=== PATIENT | male | born 1960 | race Caucasian/White ===

== ENCOUNTER 2017-11-29 17:09 | Inpatient (IN) ==
[2017-11-29] MEDS ORDERED: SALINE FLUSH 10ml SYRINGE IVF PRN (17:16)
--- NOTE | 2017-11-29 17:19 | Emergency Department Report ---
General Adult HPI - General Chief complaint: Chest Pain <ReynoldAndrew Daigle 11/29/17 17:19> Stated complaint: chest pain <FlahertyAndrew 11/29/17 17:19> Time Seen by Provider: 11/29/17 17:15 <FlahertyAndrew 11/29/17 17:19> Source: patient, EMS <Bryson Flahertyrachael Valverde Oxana 11/29/17 17:44> Mode of arrival: EMS <ReynoldAndrew Daigle 11/29/17 17:44> Limitations: no limitations <ReynoldAndrew Daigle 11/29/17 17:44> - History of Present Illness HPI narrative: 57-year-old male presents to the emergency department with the chief complaint of chest discomfort radiating into his left arm. He was at home working on his son's car immediately prior to arrival to the emergency department when his symptoms began. Patient did note improvement of symptoms with 2 sublingual nitroglycerin and intravenous fentanyl. Pain was moderate when originally present. Pain was sharp. Pain radiated to the left arm from the left chest. He denies any shortness of breath. No other complaints or associated symptoms. He was at home when his symptoms began. Symptoms have improved in nature since onset. No other complaints or associated symptoms at this time. <FlahertyAndrew Daigle 11/29/17 17:44> - Related Data Home Medications Medication Instructions Recorded Confirmed Lisinopril [Prinivil] 10 mg PO DAILY 11/29/17 11/29/17 Metformin HCl [Glucophage] 500 mg PO BID 11/29/17 11/29/17 Previous Rx's Medication Instructions Recorded Nitroglycerin [Nitrostat] 0.4 mg SL Q5M PRN #25 tab 11/30/17 <Andrew Flaherty 11/29/17 17:19> Allergies Allergy/AdvReac Type Severity Reaction Status Date / Time No Known Allergies AdvReac Unknown Verified 11/29/17 17:27 <Andrew Flaherty 11/29/17 17:19> Review of Systems Constitutional: Denies: fever, chills <Andrew Flaherty 11/29/17 17:44> Eyes: Denies: eye pain, vision change <Andrew Flaherty 11/29/17 17:44> ENT: Denies: ear pain, throat pain <Andrew Flaherty 11/29/17 17:44> Cardiovascular: Reports: chest pain. Denies: palpitations <Andrew Flaherty 17:44> Respiratory: Denies: cough, dyspnea <Andrew Flaherty 11/29/17 17:44> Gastrointestinal: Denies: abdominal pain, nausea, vomiting, diarrhea <Andrew Flaherty 11/29/17 17:44> Genitourinary: Denies: urgency, dysuria <Andrew Flaherty 11/29/17 17:44> Musculoskeletal: Denies: back pain, arthralgia <Andrew Flaherty 11/29/17 17:44 > Integumentary: Denies: erythema, rash <Andrew Flaherty 11/29/17 17:44> Neurological: Denies: headache, numbness, paresthesias <Andrew Flaherty 17:44> Psychiatric: Denies: anxiety, depression <Andrew Flaherty 11/29/17 17:44> Endocrine: Denies: polydipsia, polyuria <Andrew Flaherty 11/29/17 17:44> Hematological/Lymphatic: Denies: easy bruising, lymphadenopathy <Andrew Flaherty 11/29/17 17:44> Allergic/Immunologic: Denies: facial swelling, urticaria <Andrew Flaherty 17:44> PFSH Pre-diabetic <Andrew Flaherty 11/29/17 17:44> Surgical History: Denied by patient. <Andrew Flaherty 11/30/17 19:15> Family History: Reviewed and Noncontributory. <Andrew Flaherty 11/29/17 17:44> - Social History Smoking status: Current every day smoker <Andrew Flaherty 11/29/17 17:44> Substance use type: does not use <Andrew Flaherty 11/29/17 17:44> Alcohol intake frequency: holidays/special occasions only <Andrew Flaherty 17:44> Physical Exam - Limitations Limitations: no limitations <Andrew Flaherty 11/29/17 17:44> - General General appearance: alert, in no apparent distress <Andrew Flaherty 05/28/18 17:44> - Normal Exams: Head:: Normocephalic without trauma <FlahertyAndrew 11/29/17 17:44> Eyes:: Pupils are PERRLA w/ EOMI, No scleral icterus, irritation, or foreign bodies noted <FlahertyAndrew 11/29/17 17:44> ENMT:: No facial trauma, nasal exudates, pharyngeal erythema, or exudates are noted <Andrew Flaherty 11/29/17 17:44> Dental: No fractured, loose, or missing teeth noted <FlahertyAndrew 11/29/17 17:44> Neck:: Full range of motion, without adenopathy, JVD, bruits or thyromegaly < Andrew Flaherty 11/29/17 17:44> Chest/Respirations:: Clear all stoddard, with good airflow, and symmetry bilaterally <FlahertyAndrew 11/29/17 17:44> Cardiovascular:: Regular rate and rhythm, without murmur or gallop, Pulses 2+ all extremities, capillary refill, <2 seconds all extremities <FlahertyAndrew 11/29/17 17:44> Abdomen:: Bowel sounds positive, soft, non-tender, non-distended, no hepatosplenomegaly, masses or bruits noted <Andrew Flaherty 11/29/17 17:44> Lymphatic:: No lymphadenopathy, or lymphedema noted <Andrew Flaherty 11/29/17 17:44> Musculoskeletal:: No tenderness, or deformity noted, good range of motion, all extremities <Andrew Flaherty 11/29/17 17:44> Integumentary:: No rashes, hives, or bruising noted, hair and nails, without abnormality <Andrew Flaherty 11/29/17 17:44> Neurological:: Patient is alert, and oriented, cranial nerves, motor/sensory/ cerebellar, exams w/o gross deficits, to observation <Andrew Flaherty 17:44> Psychiatric:: Patient exhibits, appropriate attention, emotion and affect < Andrew Flaherty 11/29/17 17:44> Course - Consultations Consultation #1: Dr. Fenton: Recommends admission overnight; if he has ongoing pain, can put him on a lovenox drip. Else can give low dose lovenox (30mg bid or 40mg daily). Serial troponins overnight and echo in the AM. <eb 11/29/17 19:44> Time: 19:34 <eb 11/29/17 19:34> Consultation #2: [facility] Tele[facility]: Will admit for trop trending and overnight mgmt. <11/29/17 19:49> Time: 19:44 <eb 11/29/17 19:44> Vital Signs Temperature 98.7 F 11/29/17 17:05 Pulse Rate 88 11/29/17 17:05 Respiratory Rate 24 11/29/17 17:05 Blood Pressure 138/77 11/29/17 17:05 Pulse Oximetry 95 11/29/17 17:05 Temperature 98.7 F 11/29/17 17:18 Pulse Rate 81 11/29/17 17:45 Respiratory Rate 17 11/29/17 17:45 Blood Pressure 151/65 H 11/29/17 17:45 Pulse Oximetry 93 11/29/17 17:45 <11/29/17 19:34> Medical Decision Making - [facility] Narrative Medical decision making narrative: Patient care was turned over to Dr. Quentin Silva at 1800. Patient was given 324 mg of ASA po by EMS prior to arrival to the ED. He was also given sublingual nitroglycerin and fentanyl which took his pain away. He remained asymptomatic for his ED course. <Andrew Flaherty 11/29/17 18:16> - Differential Diagnosis ACS, chest wall pain, pneumothorax, metabolic disorder <Andrew Flaherty 18:16> - Medical Records Medical records reviewed: Yes: I reviewed the patient's medical records. <November, Quentin 11/29/17 19:49> - Lab Data Lab results reviewed: Yes: I reviewed the patient's lab results. <November,Quentin 11/29/17 19:49> Result diagrams: 11/30/17 04:00 11/30/17 04:00 <Andrew Flaherty 11/29/17 17:19> Lab Results 0511/29/17 11/29/17 Range/Units 17:27 17:27 18:56 WBC 10.8 (4.5-11.0) T/MM3 RBC 5.24 (4.50-5.90) M/MM3 Hgb 15.7 (13.5-17.5) GM/DL Hct 47.6 (41-53) % MCV 90.8 (80-100) UM3 MCH 30.0 (26-34) UUG MCHC 33.0 (31-37) GM/DL RDW Std Deviation 49.8 (36.9-50.2) FL Plt Count 258 (130-400) T/MM3 MPV 10.5 (9.4-12.4) UM3 Immature Gran % (Auto) 0.3 (0.0-0.5) % Neut % (Auto) 65.4 (33-66) % Lymph % (Auto) 23.1 (23-45) % Smyth % (Auto) 7.0 (0-9.0) % Eos % (Auto) 3.9 (0-4) % Baso % (Auto) 0.3 (0-2) % Neut # (Auto) 7.0 (1.8-7.7) T/MM3 Lymph # (Auto) 2.5 (1-4.8) T/MM3 Smyth # (Auto) 0.8 (0-0.8) T/MM3 Eos # (Auto) 0.4 (0-0.5) T/MM3 Baso # (Auto) 0.0 (0-0.2) T/MM3 Abs Immat Gran (auto) 0.03 (0.00-0.03) T/MM3 Turbidity < 20 (0-20) Sodium 147 H (134-144) MEQ/L Potassium 4.2 (3.6-5) MEQ/L Chloride 105 (98-107) MEQ/L Carbon Dioxide 27 (22-30) MEQ/L Anion Gap 15 (5-15) meq/L BUN 21.0 H (9-20) MG/DL Creatinine 0.9 (0.8-1.5) mg/dL GFR Calculation 88 BUN/Creatinine Ratio 23 (6-26) RATIO Glucose 113 H (75-110) MG/DL Calculated Osmolality 286 H (261-280) MOSM/KG Calcium 9.9 (8.4-10.2) MG/DL Total Bilirubin 0.50 (0.20-1.30) MG/DL Icterus Index < 2 (0-7) AST 23 (17-59) U/L ALT 28 (1-50) U/L Alkaline Phosphatase 66 (38-126) U/L Troponin I < 0.012 0.040 D (0-0.12) ng/ml Total Protein 7.7 (6.3-8.2) g/dL Albumin 4.3 (3.5-5.0) g/dL Globulin 3.4 (2.4-3.6) G/DL Albumin/Globulin Ratio 1.3 (1.1-2.2) RATIO Specimen Hemolysis < 15 < 15 (0-25) <11/29/17 19:34> - Radiology Data Radiology results reviewed: Yes: I reviewed the patient's radiology results. < 11/29/17 19:49> Chest x-ray: No acute processes. <Andrew Flaherty 11/29/17 18:16> - EKG Data EKG #1 EKG results narrative: Sinus rhythm. 93 bpm. No STEMI. Normal EKG. <Andrew Flaherty 11/29/17 18:16> Disposition Clinical Impression: Elevated troponin, Morbid obesity with BMI of 50.0-59.9, adult, Tobacco dependence, Non-insulin treated type 2 diabetes mellitus <Andrew Flaherty 11/30/17 19:15> Disposition: 02 To [facility] <Andrew Flaherty 11/30/17 19:15> Print Language: Faroese <Andrew Flaherty 11/30/17 19:15> Condition: Stable <Andrew Flaherty 11/30/17 19:15> Prescriptions: New Nitroglycerin [Nitrostat] 0.4 mg SL Q5M PRN #25 tab PRN Reason: Angina Discontinued Naproxen [Aleve (Naproxen) 220 mg] 220 mg PO Q6H PRN PRN Reason: Pain Ibuprofen 400 mg PO O No Action Lisinopril [Prinivil] 10 mg PO DAILY Metformin HCl [Glucophage] 500 mg PO BID <Andrew Flaherty 11/29/17 17:19> Referrals: Tauiliili,Alessia J, [facility] [Primary Care Provider] - <Andrew Flaherty - 11/29/17 17:19> Time of Disposition: 19:49 <NovemberQuentin - 11/29/17 19:49> - Seen By: physician <NovemberQuentin - 11/29/17 19:49>
--- OUTSIDE RECORDS SUMMARY | 2017-11-29 18:18 | External Medical Summary ---
:1960 Author Organization [employer] Care Team Providers Name Role Phone Cass Conde Provider Role Unavailable Allergies, Adverse Reactions, Alerts Substance Reaction Event Type N.K.D.A. Info Not Available Non Drug Allergy Problems Problem Type Condition Code Onset Dates Condition Status Assessment Screening for lipoid disorders V77.91 Active Assessment Major depressive disorder, recurrent 296.32 Active episode, moderate Assessment Elevated blood pressure reading 796.2 Active without diagnosis of hypertension Assessment Screening for diabetes mellitus V77.1 Active Problem Allergic rhinitis 477.9 Active Problem Major depressive disorder, recurrent 296.32 Active episode, moderate Problem Elevated blood pressure reading 796.2 Active without diagnosis of hypertension Assessment COPD 496 Active Assessment Allergic rhinitis 477.9 Active Problem COPD 496 Active Problem Tobacco use disorder 305.1 Active Medications Medication Code System Code Instructions Start End Date Status Dosage Date Wellbutrin XL NDC 21888-309 150 MG Orally November 01, 1 qd x 4d, 0-01 Once a day 2014 then 1 [place] [address] 10 MG Orally November 01, Mar 01, 1 tablet 4-10 Once a day 2014 2014 Tylenol Extra NDC 59029-615 500 MG Orally 1 tablet Strength 2-10 every 6 hrs as needed Procedures Procedure Coding System Code Date OFFICE VISIT, EST-LOW COMPLEXITY (15 MIN.) CPT-4 38627 November 01, 2014 Vital Signs Date/Time: November 01, 2014 Height 70 in Weight 367.8 lbs Temperature 98.2 F Blood Pressure Diastolic 81 mm Hg Blood Pressure Systolic 140 mm Hg Cardiac Monitoring Heart Rate 78 /min BMI 52.77 Index Respiratory Rate 18 /min Results No Known Results Summary Purpose eClinicalWorks Submission
--- OUTSIDE RECORDS SUMMARY | 2017-11-29 18:18 | External Medical Summary ---
:1960 Author Organization [employer] Care Team Providers Name Role Phone BrittaniewillieCass vizcarra Provider Role Unavailable Allergies No Known Allergies Problems Problem Type Condition Code Onset Dates Condition Status Problem Allergic rhinitis 477.9 Active Problem Major depressive disorder, recurrent 296.32 Active episode, moderate Problem Elevated blood pressure reading 796.2 Active without diagnosis of hypertension Assessment Screening for diabetes mellitus V77.1 Active Assessment COPD 496 Active Problem COPD 496 Active Assessment Major depressive disorder, recurrent 296.32 Active episode, moderate Medications Medication Code System Code Instructions Start End Date Status Dosage Date Tylenol Extra NDC 51757-956 500 MG Orally 1 tablet Strength 2-10 every 6 hrs as needed Wellbutrin XL NDC 26452-813 150 MG Orally November 01, 1 qd x 4d, 0-01 Once a day 2014 then 1 bid Loratadine NDC 65036-762 10 MG Orally November 01, Mar 01, 1 tablet 4-10 Once a day 2014 2014 Procedures Procedure Coding System Code Date HEMOGLOBIN A1C, IN HOUSE CPT-4 04456 November 06, 2014 URINALYSIS, IN HOUSE CPT-4 25883 November 06, 2014 TSH CPT-4 40740 November 06, 2014 IH CMP CPT-4 04254 November 06, 2014 COMPLETE CBC W/AUTO DIFF WBC CPT-4 18367 November 06, 2014 IH LIPID PANEL CPT-4 05302 November 06, 2014 Results No Known Results Summary Purpose eClinicalWorks Submission
--- OUTSIDE RECORDS SUMMARY | 2017-11-29 18:18 | External Medical Summary ---
:1960 Author Organization [employer] Care Team Providers Name Role Phone Amaya Cass Provider Role Unavailable Allergies, Adverse Reactions, Alerts Substance Reaction Event Type N.K.D.A. Info Not Available Non Drug Allergy Problems Problem Type Condition Code Onset Dates Condition Status Assessment COPD 496 Active Assessment Elevated blood pressure reading 796.2 Active without diagnosis of hypertension Assessment Allergic rhinitis 477.9 Active Assessment Major depressive disorder, recurrent 296.32 Active episode, moderate Problem Elevated blood pressure reading 796.2 Active without diagnosis of hypertension Problem Allergic rhinitis 477.9 Active Problem Prediabetes 790.29 Active Problem Tobacco use disorder 305.1 Active Assessment Prediabetes 790.29 Active Problem Major depressive disorder, recurrent 296.32 Active episode, moderate Problem COPD 496 Active Medications Medication Code System Code Instructions Start End Date Status Dosage Date Wellbutrin XL NDC 72842-70 150 MG Orally November 01, 1 tablet 30-01 BID 2014 Loratadine NDC 80495-36 10 MG Orally November 01, Mar 01, 1 tablet 74-10 Once a day 2014 2014 Tylenol Extra NDC 76702-47 500 MG Orally 1 tablet as Strength 22-10 every 6 hrs needed Spiriva NDC 14320-44 18 MCG November 08, 1 capsule HandiHaler 75-41 Inhalation Once 2014 a day Metformin HCl NDC 89618-94 500 MG Orally November 08, 1 tablet 48-01 Twice a day 2014 with meals Procedures Procedure Coding System Code Date OFFICE VISIT, EST-LOW COMPLEXITY (15 MIN.) CPT-4 57351 November 08, 2014 -ELECTROCARDIOGRAM, COMPLETE CPT-4 12660 November 08, 2014 Vital Signs Date/Time: November 08, 2014 Height 70 in Weight 385.0 lbs Temperature 98.4 F Blood Pressure Diastolic 70 mm Hg Blood Pressure Systolic 130 mm Hg Cardiac Monitoring Heart Rate 68 /min BMI 55.24 Index Respiratory Rate 18 /min Results No Known Results Summary Purpose eClinicalWorks Submission
[2017-11-29] MEDS ORDERED: ENOXAPARIN 40 MG/0.4 ML INJECTION SQ ONE (19:48)
[2017-11-29] MEDS ORDERED: NICOTINE 21 MG PATCH TD ONE (19:55)
[2017-11-29] MEDS ORDERED: HYDROCODONE/APAP 5mg/325mg TABLET PO PRN (20:10)
[2017-11-29] MEDS ORDERED: ONDANSETRON 4 MG/2 ML INJECTION IVP PRN (20:10)
[2017-11-29] MEDS ORDERED: MORPHINE SULFATE 2mg INJECTION IVP PRN (20:10)
[2017-11-29 20:41] VITALS: BMI 60.2
[2017-11-29] MEDS ORDERED: NITROGLYCERIN 0.4 MG SUBLINGUAL TABLET SL PRN (21:02)
--- NOTE | 2017-11-29 21:15 | History & Physical Report ---
History of Present Illness Date: 11/29/17 Chief complaint: chest pain HPI: 57 yo M with PMH of morbid obesity and NIDDM presented to the ED with reports of severe stabbing substernal chest pain that started while he was kneeing down working on a car. He reports the pain radiated to his left arm and up his left jaw. He said it lasted for about 20 mins before EMS got there and he was given nitro and ASA and IV fentanyl at that time. His pain went from a 9 to a 1 before arrival to the ED. He denies SOA, diaphoresis, or N/V associated. He does have FH of DC at age of 62 in his father. He did have a mild troponin elevation in the ED of 0.[address] Fenton recommended admission for monitoring and ECHO in the AM. Review of Systems All systems PM: 10-point ROS was reviewed, no additional remarkable complaints except Past Medical History Medical History: Medical History (Last Updated 11/29/17 @ 21:17 by Annalisa Ochoa MD) Diabetes mellitus, type 2 Morbid obesity Family History: As Above - Social History Smoking status: Current every day smoker Medications Home Medications Medication Instructions Recorded Confirmed Type Ibuprofen 400 mg PO O 11/29/17 11/29/17 History Lisinopril [Prinivil] 10 mg PO DAILY 11/29/17 11/29/17 History Metformin HCl [Glucophage] 500 mg PO BID 11/29/17 11/29/17 History Naproxen [Aleve (Naproxen) 220 mg] 220 mg PO Q6H PRN 11/29/17 11/29/17 History Allergies Allergy/AdvReac Type Severity Reaction Status Date / Time No Known Allergies AdvReac Unknown Verified 11/29/17 17:27 Exam Vital Signs: Temperature 98.5 F 11/29/17 20:44 Pulse Rate 75 11/29/17 20:44 Respiratory Rate 20 11/29/17 20:44 Blood Pressure 150/95 H 11/29/17 20:44 Pulse Oximetry 95 11/29/17 20:44 Telemetry Rhythm: Sinus Rhythm Height/Weight/BMI: Height 1.78 m Weight 190.3 kg Body Mass Index 60.2 - Constitutional Present: no acute distress, morbidly obese - Routine Respiratory Exam Present: CTA bilaterally. Absent: wheezes - Routine Cardiovascular Exam Present: RRR. Absent: murmur - Routine Abdominal Exam Present: soft, normoactive bowel sounds, non distended. Absent: tenderness - Routine Extremities Exam Present: normal capillary refill - Routine Neurological Exam Present: alert, oriented X3, CN II-XII intact Results - Labs CBC & Chem 7: 11/29/17 17:27 11/29/17 17:27 Assessment and Plan (1) Chest pain Current visit: Yes Status: Acute (2) Elevated troponin Current visit: Yes Status: Acute (3) Morbid obesity with BMI of 50.0-59.9, adult Current visit: Yes Status: Acute (4) Non-insulin treated type 2 diabetes mellitus Current visit: Yes Status: Acute (5) Tobacco dependence Current visit: Yes Status: Acute Assessment and Plan: admit patient for monitoring. Serial troponin ordered. ECHO in AM. did have a mild troponin bump in ED. Dr. Fenton consulted by ED, recommended medical management with lovenox tonight. If develops pain again start heparin gtt. nitro and morphing ordered PRN for chest pain. DVT Prophylaxis: Lovenox Resuscitation Status: Full Code - Physician Narrative Narrative: Date: 11/29/17 Time: 2108 Hospital Course Summary Disclaimer: The visit summary below is not to be considered part of the above Progress Note.
[2017-11-29] MEDS ORDERED: INSULIN ASPART 100unit/ml INJECTION SQ PRN (22:21)
[2017-11-30] MEDS ORDERED: ENOXAPARIN 150 MG/ML INJECTION SQ SCH (04:00)
--- NOTE | 2017-11-30 07:36 | XRay Report ---
Indication: Pain PROCEDURE: XR chest 1V: Encounter: Initial Comparison: April 26, 2009 FINDINGS: The lungs are clear. There is no abnormal airspace opacity, pleural effusion or pneumothorax identified. The heart size, pulmonary vasculature and mediastinum are within normal limits. No significant skeletal abnormality is seen. IMPRESSION: No acute cardiopulmonary abnormality. .
[2017-11-30] MEDS: LISINOPRIL 10 MG TABLET PO SCH (08:59)
[2017-11-30] MEDS ORDERED: MIDAZOLAM 2mg/2ml INJECTION ONE (10:48)
[2017-11-30] MEDS ORDERED: FentaNYL 100 MCG/2 ML INJECTION ONE (10:48)
[2017-11-30] MEDS ORDERED: LIDOCAINE 1% (10mg/ml) 30ml SDV INJ ONE (10:49)
[2017-11-30] MEDS ORDERED: Verapamil 5 MG/2 ML VIAL ONE (10:49)
[2017-11-30] MEDS ORDERED: HEPARIN 1,000unit/ml INJECTION 10ml ONE (10:49)
[2017-11-30] MEDS ORDERED: HEPARIN 1,000 UNITS/500 ML PREMIX (*CVL ONLY*) IV ONE (10:49)
[2017-11-30] MEDS ORDERED: NITROGLYCERIN 50MG INJECTION IV ONE (10:50)
[2017-11-30] MEDS ORDERED: IOHEXOL 350mg/ml 200ml BOTTLE ONE (10:50)
[2017-11-30] MEDS: NS 1,000 ML IV SCH (10:55)
--- NOTE | 2017-11-30 11:09 | Cardiology Consult Note ---
History of Present Illness Consult reason: chest pain History of present illness: Rashid is a pleasant 57-year-old male without prior known heart is a disease but with significant cardiovascular risk factors including diabetes mellitus and smoking history positive family history. His been instituted previous health until around 3:30 PM yesterday he was doing some light fixing around the house when sinus pacing substernal chest pain described as a stabbing soon enough the pain went up to the neck is described as a pressure and ran down the left arm to the elbow the tightness type feeling, the pain became intense up to 9/10 with some associated dyspnea but no diaphoresis nausea or palpitations. Patient initially decided to lay down and rest to make it get better however as it got more intense and went and down the left arm he got scared so called 911 over given nitroglycerin sublingual IV fentanyl and oral aspirin with quick resolution of the pain was down to 1/10 by the time he arrived emergency room. She just was about one half hours. He admitted to hospitalist service initial troponins showed a significant delta, however the third value came back elevated 0.4 CBC and chemistry are unremarkable except for hyperglycemia serial EKGs 2 were line a first-degree AV block she will a very minimal changes in inferior leads but nothing diagnostic and EKG may be considered within the broad range of normal. She has not had any further chest pain since admission. Review of Systems All systems PM: 10-point ROS was reviewed, no additional remarkable complaints except PFSH Patient Stated Medical History Diabetes Mellitus Type 2 Yes Clinic Medical History (Last Updated 11/29/17 @ 21:17 by Annalisa Ochoa MD) Diabetes mellitus, type 2 (Acute Medical) Morbid obesity (Acute Medical) Family History: Father had an NH in his 30s and in his 70s underwent CABG years other family members with NH and stents - Social History Smoking status: Current every day smoker Substance use type: does not use, other (adamantly denies any drug use) Alcohol intake frequency: holidays/special occasions only (admits to history of alcohol intake in his younger years) Current residence: Apartment/Private Home Medications Home Medications Medication Instructions Recorded Confirmed Type Lisinopril [Prinivil] 10 mg PO DAILY 11/29/17 11/29/17 History Metformin HCl [Glucophage] 500 mg PO BID 11/29/17 11/29/17 History Nitroglycerin [Nitrostat] 0.4 mg SL Q5M PRN #25 tab 11/30/17 Rx Allergies Allergy/AdvReac Type Severity Reaction Status Date / Time No Known Allergies AdvReac Unknown Verified 11/29/17 17:27 Exam Vital signs: Temperature 96.4 F L 11/30/17 08:00 Pulse Rate 73 11/30/17 08:00 Respiratory Rate 20 11/30/17 08:00 Blood Pressure 171/90 H 11/30/17 08:00 Pulse Oximetry 95 11/30/17 08:00 - Constitutional no acute distress, morbidly obese - Routine HEENT Exam Head: Present: normocephalic, atraumatic Eye: Present: EOMI, PERRL ENT: Present: mucous membranes moist - Routine Neck Exam Present: supple, normal carotid upstroke. Absent: JVD, carotid bruit, lymphadenopathy, thyromegaly - Routine Respiratory Exam Present: CTA bilaterally - Routine Cardiovascular Exam Present: RRR, no murmur, S4 - Routine Abdominal Exam Present: soft, normoactive bowel sounds, non distended, non tender. Absent: organomegaly, mass - Routine Extremities Exam Present: no edema, pulses intact, normal capillary refill. Absent: cyanosis, clubbing - Routine Skin Exam Present: intact, dry. Absent: cyanosis, erythema - Routine Neurological Exam Present: alert, oriented X3, CN II-XII intact, moving all extremities, vision grossly intact, hearing grossly intact. Absent: motor deficit - Routine Psychiatric Exam Present: normal affect, normal thought process, cooperative, good insight, good judgment. Absent: depressed, anxious Results 11/30/17 04:00 11/30/17 04:00 Cardiac Enzymes 11/30/17 11/30/17 11/30/17 Range/Units 02:06 04:00 07:48 AST 24 (17-59) U/L Troponin I 0.405 H D 0.412 H (0-0.12) ng/ml CBC 11/30/17 Range/Units 04:00 WBC 8.0 (4.5-11.0) T/MM3 RBC 4.97 (4.50-5.90) M/MM3 Hgb 14.7 (13.5-17.5) GM/DL Hct 45.5 (41-53) % Plt Count 218 (130-400) T/MM3 Neut # (Auto) 4.7 (1.8-7.7) T/MM3 Lymph # (Auto) 2.2 (1-4.8) T/MM3 [place] # (Auto) 0.7 (0-0.8) T/MM3 Eos # (Auto) 0.4 (0-0.5) T/MM3 Baso # (Auto) 0.0 (0-0.2) T/MM3 Comprehensive Metabolic Panel 11/30/17 Range/Units 04:00 Sodium 143 (134-144) MEQ/L Potassium 4.3 (3.6-5) MEQ/L Chloride 104 (98-107) MEQ/L Carbon Dioxide 30 (22-30) MEQ/L BUN 18.0 (9-20) MG/DL Creatinine 0.8 (0.8-1.5) mg/dL Glucose 118 H (75-110) MG/DL Calcium 9.2 (8.4-10.2) MG/DL AST 24 (17-59) U/L ALT 24 (1-50) U/L Alkaline Phosphatase 57 (38-126) U/L Total Protein 6.7 (6.3-8.2) g/dL Albumin 3.6 (3.5-5.0) g/dL Intake and Output 11/29/17 11/30/17 11/30/17 22:59 06:59 14:59 Other: Urine Appearance Clear Urine Color Yellow # Voids 1 Weight 190.3 kg 186.9 kg Patient Weight 12/01/17 06:59 Weight 186.9 kg - Imaging and Cardiology EKG results: image reviewed - EKG Interpretation EKG: sinus rhythm, no acute changes Assessment and Plan - Assessment and Plan Acute non-STEMI currently chest pain-free Diabetes. 2 Smoker Positive family history Current treatment for acute NH, patient is on aspirin. Lovenox We'll make sure patient is on a statin and beta blockers Continue to trend troponins until it peaks Smoking cessation Indication alternatives risks and benefits and possible complications of heart catheterization possible PTCA and stent discussed with the patient and the family in detail they're in agreement IV fluids started for a heart catheter Hospital Course Summary Disclaimer: The visit summary below is not to be considered part of the above Progress Note.
[2017-11-30] MEDS ORDERED: CLOPIDOGREL 75 MG TABLET ONE (11:51)
[2017-11-30] MEDS ORDERED: ATROPINE 1 MG/ML INJECTION IVP PRN (13:35)
[2017-11-30] MEDS ORDERED: ONDANSETRON 4 MG/2 ML INJECTION IVP PRN (13:35)
[2017-11-30] MEDS ORDERED: MORPHINE SULFATE 4mg INJECTION IVP PRN ×2 (13:35)
[2017-11-30] MEDS ORDERED: LORazepam 0.5 MG TABLET PO PRN (13:35)
[2017-11-30] MEDS ORDERED: MAG-AL + SIM ORAL LIQUID 30ml PO PRN (13:35)
[2017-11-30] MEDS ORDERED: BISACODYL 10 MG SUPPOSITORY RECTALLY PRN (13:35)
[2017-11-30] MEDS ORDERED: HYDROCODONE/APAP 5mg/325mg TABLET PO PRN (13:35)
[2017-11-30] MEDS ORDERED: NITROGLYCERIN 0.4 MG SUBLINGUAL TABLET SL PRN (13:35)
[2017-11-30] MEDS ORDERED: ACETAMINOPHEN 325 MG TABLET PO PRN (13:35)
--- NOTE | 2017-11-30 14:13 | History & Physical Report ---
History of Present Illness Date: 11/30/17 HPI: Pt came in with stabbing cp that started while he was working on his car yesterday. EMS was called and nitro they gave helped somewhat but the fentanyl given took away the pain. Pt has not had cp since. Pt denies any n/v/d, f/c. Pt denies any previous such episodes. Pt denies any sx's or worsening of sx's previously to yesterday's episode. Pt is doing well currently. For complete H&P please see overnight note HPI from overnight: 57 yo M with PMH of morbid obesity and NIDDM presented to the ED with reports of severe stabbing substernal chest pain that started while he was kneeing down working on a car. He reports the pain radiated to his left arm and up his left jaw. He said it lasted for about 20 mins before EMS got there and he was given nitro and ASA and IV fentanyl at that time. His pain went from a 9 to a 1 before arrival to the ED. He denies SOA, diaphoresis, or N/V associated. He does have FH of [place] at age of 62 in his father. He did have a mild troponin elevation in the ED of 0.[address] Fenton recommended admission for monitoring and ECHO in the AM. Past Medical History Medical History: Medical History (Last Updated 11/29/17 @ 21:17 by Annalisa Ochoa MD) Diabetes mellitus, type 2 Morbid obesity Family History: As Above - Social History Smoking status: Current every day smoker Current residence: Apartment/Private Home Medications Home Medications Medication Instructions Recorded Confirmed Type Lisinopril [Prinivil] 10 mg PO DAILY 11/29/17 11/29/17 History Metformin HCl [Glucophage] 500 mg PO BID 11/29/17 11/29/17 History Nitroglycerin [Nitrostat] 0.4 mg SL Q5M PRN #25 tab 11/30/17 Rx Allergies Allergy/AdvReac Type Severity Reaction Status Date / Time No Known Allergies AdvReac Unknown Verified 11/29/17 17:27 Exam Vital Signs: Temperature 97.5 F 11/30/17 12:23 Pulse Rate 86 11/30/17 13:23 Respiratory Rate 16 11/30/17 13:23 Blood Pressure 160/97 H 11/30/17 13:23 Pulse Oximetry 94 11/30/17 13:23 Height/Weight/BMI: Height 5 ft 10 in Weight 186.9 kg Body Mass Index 60.2 - Constitutional Present: no acute distress - Routine HEENT Exam Head: Present: normocephalic, atraumatic Eye: Present: EOMI ENT: Present: mucous membranes moist - Routine Respiratory Exam Present: CTA bilaterally. Absent: wheezes, crackles - Routine Cardiovascular Exam Present: RRR, no murmur - Routine Abdominal Exam Present: soft, non distended, non tender - Routine Extremities Exam Present: no edema. Absent: cyanosis, clubbing - Routine Skin Exam Present: intact, dry - Routine Neurological Exam Present: alert, oriented X3 - Routine Psychiatric Exam Present: normal affect, normal thought process Results - Labs CBC & Chem 7: 11/30/17 04:00 11/30/17 04:00 Assessment and Plan (1) Elevated troponin Current visit: Yes Status: Acute (2) Morbid obesity with BMI of 50.0-59.9, adult Current visit: Yes Status: Acute (3) Tobacco dependence Current visit: Yes Status: Acute (4) Non-insulin treated type 2 diabetes mellitus Current visit: Yes Status: Acute (5) Chest pain Current visit: Yes Status: Acute Assessment and Plan: NSTEMI -Trop-->0.405-->0.412 -Trend trop, plan for heart cath today -Cards following DM -Hold metformin d/t heart cath -SSI - Physician Narrative Narrative: Date: 11/30/17 Time: 1410 Hospital Course Summary Disclaimer: The visit summary below is not to be considered part of the above Progress Note. Hospital Course: 11/30/17 Pt currently does not have cp, pt has NSTEMI and has risk factors and will be getting heart cath today.
--- NOTE | 2017-11-30 15:03 | Cardiac Catheterization Report ---
DATE OF SERVICE 11/30/2017 PROCEDURE PERFORMED 1. Transradial left heart catheterization, LV gram, coronary angiogram. 2. Moderate conscious sedation - duration of 30 minutes. INDICATION This is a morbidly obese gentleman who is diabetic and a smoker with positive family history who presented to the emergency room with substernal chest pain radiating down to left arm and left upper neck. He had elevated troponin of 0.4. His EKG did not show any definitive abnormality. He was advised on the indications, alternatives, risks and benefits of heart catheterization and he agreed to proceed. The patient has had no further angina since admission to the hospital. His initial pain resolved with fentanyl, nitroglycerin and aspirin given by EMS. PREMEDICATION 1 mg of Versed, 25 mcg of fentanyl. PROCEDURE DESCRIPTION The patient was brought to the Cardiac Cath Laboratory, received IV sedation as above. The right wrist was prepped and draped in the usual sterile fashion after using 1% lidocaine by infiltration - amount of 1.5 ml. Accessed the right radial artery without difficulty using modified Seldinger percutaneous technique. A 6-[place] slender sheath was introduced and the side arm was aspirated and flushed. Went ahead and injected the intraarterial drug combo, 5 mg of verapamil, 300 mcg of nitroglycerin and 3000 units of heparin. Proceeded with the [place] catheter to perform above-mentioned procedure. The procedure was well tolerated. There was no immediate complication. Consultation with clock smith at the conclusion of the study who reviewed angiogram and decision was for medical therapy. TR Band was deployed for hemostasis. There was no immediate complication. FINDINGS 1. HEMODYNAMICS: LVEDP was 8 mmHg. There was no transvalvular or subvalvular pressure gradient present. 2. CORONARY ANGIOGRAM. Right coronary artery is a very large and dominant vessel that exhibits irregularity and slight haziness in the proximal segment. This is a possible ulceration and lesion is estimated angiographically about 30% . Distally right at the bifurcation into the proximal RPDA appears hazy due to atheroma or thrombus--reducible thrombus--measured in multiple projections failed to show any occlusive disease there. I did use 12 ml of contrast at 5 ml /sec for adequate opacification in this morbidly obese gentleman. I did have to take only shallow views as deep views did not allow us adequate x-ray penetration of soft tissue for adequate visualization. Within those limitations , the areas examined closely were not felt to be occlusive. RPDA and RPLB branches are widely patent. LV gram is limited by a small hand injection and showed preserved LV systolic function. Adequate regional wall motion analysis was not possible and an echocardiogram would be helpful to look at the inferior wall. Left main coronary artery is large, exhibits distal tapering and stenosis, angiographically about 30-40%, was examined in multiple projections. Diagonal branches are patent. LAD is patent. Left circumflex artery gives origin to multiple obtuse marginal branches and a PLB branch. All appear patent and free from any occlusive disease. The OM branches are small in caliber. IMPRESSION 1. Coronary artery disease as manifested by distal left main 30-40% stenosis, irregularity and possible ulcer in the proximal RCA of about 30% stenosis, distal RCA bifurcation hazy area. Nevertheless no occlusive lesions were seen by angiogram. 2. Preserved LV systolic function. 3. Medical therapy is advised due to acute [place]. Patient was loaded with 900 mg of Plavix in the [facility] Manager and planning Lovenox for the hospital duration. Observation for about 36 hours more. If he remains stable, he could be discharged then. If patient starts having severe or frequent angina, a transfemoral heart catheterization with IVUS examination of those areas in [place] may be contemplated, but at this time we don't feel it necessary. 4. A strong emphasis on smoking cessation risk factor control. MTDD
--- NOTE | 2017-11-30 15:26 | Echocardiogram ---
COMPLETE ECHOCARDIOGRAM REPORT DATE OF SERVICE 11/30/2017 INDICATION Acute SD, non-STEMI. TECHNICAL QUALITY Technically good 2-D, M-mode, Doppler echocardiographic images were submitted for interpretation. FINDINGS 1. CARDIAC CHAMBERS. All cardiac chamber measurements are normal. Aortic root diameter is normal. RV appears to be normal in size with good contractility. 2. LEFT VENTRICLE. Analysis reveals concentric LVH of a mild degree is present. Associate Professor Of Education measured 13.5 mm in the posterior wall, 13.9 mm in the septal wall. Wall motion analysis is normal. Systolic function is normal. EF is estimated at 65%. Diastolic function parameters are considered normal. 3. VALVES. Aortic valve exhibits normal structure and motion, normal valve excursion. Mitral valve exhibits annular calcification of a mild degree. Valve excursion is normal. Tricuspid valve exhibits mild annular calcification. Leaflet structure and motion appear normal. 4. DOPPLER. Analysis reveals trace regurgitation involving mitral and tricuspid valves, neither of hemodynamic significance. Normal flow velocity throughout were measured. 5. Normal systolic PA pressure estimated at 26 mmHg. IVC is not well seen. No evidence of pericardial effusion. IMPRESSION 1. Normal LV size and systolic function, EF of 60-65%, with preserved diastolic function parameters. 2. Mild LVH. 3. Mild sclerotic changes of the valves as above. MTDD
[2017-11-30] MEDS: ENOXAPARIN 100 MG/ML INJECTION SQ SCH (20:55)
[2017-11-30] MEDS ORDERED: ATORVASTATIN 40 MG TABLET PO SCH (21:00)
[2017-12-01 00:07] VITALS: RESP 16
[2017-12-01] MEDS: NS 1,000 ML IV SCH (00:13)
[2017-12-01 03:26] VITALS: TEMP 97.1
[2017-12-01] MEDS ORDERED: CLOPIDOGREL 75 MG TABLET PO SCH (09:00)
[2017-12-01] MEDS ORDERED: ASPIRIN 81 MG CHEWABLE TABLET PO SCH (09:00)
[2017-12-01 09:05] VITALS: BP 134/75; PULSE 72; O2SAT 92
[2017-12-01] MEDS: LISINOPRIL 10 MG TABLET PO SCH (09:06)
[2017-12-01] MEDS: ENOXAPARIN 100 MG/ML INJECTION SQ SCH (09:12)
--- NOTE | 2017-12-01 11:55 | Discharge Summary ---
Discharge Information Date of admission: 11/30/17 14:09 Anticipated date of discharge: 12/01/17 Attending Physician: Marcos Moon MD Primary care physician: Alessia Cisneros APRN Consults: Dr Fenton - Discharge Diagnosis (1) Elevated troponin Status: Acute (2) Morbid obesity with BMI of 50.0-59.9, adult Status: Acute (3) Tobacco dependence Status: Acute (4) Non-insulin treated type 2 diabetes mellitus Status: Acute (5) Chest pain Status: Acute NSTEMI Morbid obesity DM Type 2 Tobacco dependence - Procedures Procedures: Date of Exam: 11/30/17 PROCEDURE PERFORMED 1. Transradial left heart catheterization, LV gram, coronary angiogram. 2. Moderate conscious sedation - duration of 30 minutes. INDICATION This is a morbidly obese gentleman who is diabetic and a smoker with positive family history who presented to the emergency room with substernal chest pain radiating down to left arm and left upper neck. He had elevated troponin of 0.4. His EKG did not show any definitive abnormality. He was advised on the indications, alternatives, risks and benefits of heart catheterization and he agreed to proceed. The patient has had no further angina since admission to the hospital. His initial pain resolved with fentanyl, nitroglycerin and aspirin given by EMS. PROCEDURE DESCRIPTION The patient was brought to the Cardiac Cath Laboratory, received IV sedation as above. The right wrist was prepped and draped in the usual sterile fashion after using 1% lidocaine by infiltration - amount of 1.5 ml. Accessed the right radial artery without difficulty using modified Seldinger percutaneous technique. A 6-Turkmen slender sheath was introduced and the side arm was aspirated and flushed. Went ahead and injected the intraarterial drug combo, 5 mg of verapamil, 300 mcg of nitroglycerin and 3000 units of heparin. Proceeded with the [place] catheter to perform above-mentioned procedure. The procedure was well tolerated. There was no immediate complication. Consultation with dermatology procedural physician at the conclusion of the study who reviewed angiogram and decision was for medical therapy. TR Band was deployed for hemostasis. There was no immediate complication. FINDINGS 1. HEMODYNAMICS: LVEDP was 8 mmHg. There was no transvalvular or subvalvular pressure gradient present. 2. CORONARY ANGIOGRAM. Right coronary artery is a very large and dominant vessel that exhibits irregularity and slight haziness in the proximal segment. This is a possible ulceration and lesion is estimated angiographically about 30% . Distally right at the bifurcation into the proximal RPDA appears hazy due to atheroma or thrombus--reducible thrombus--measured in multiple projections failed to show any occlusive disease there. I did use 12 ml of contrast at 5 ml /sec for adequate opacification in this morbidly obese gentleman. I did have to take only shallow views as deep views did not allow us adequate x-ray penetration of soft tissue for adequate visualization. Within those limitations , the areas examined closely were not felt to be occlusive. RPDA and RPLB branches are widely patent. LV gram is limited by a small hand injection and showed preserved LV systolic function. Adequate regional wall motion analysis was not possible and an echocardiogram would be helpful to look at the inferior wall. Left main coronary artery is large, exhibits distal tapering and stenosis, angiographically about 30-40%, was examined in multiple projections. Diagonal branches are patent. LAD is patent. Left circumflex artery gives origin to multiple obtuse marginal branches and a PLB branch. All appear patent and free from any occlusive disease. The OM branches are small in caliber. IMPRESSION 1. Coronary artery disease as manifested by distal left main 30-40% stenosis, irregularity and possible ulcer in the proximal RCA of about 30% stenosis, distal RCA bifurcation hazy area. Nevertheless no occlusive lesions were seen by angiogram. 2. Preserved LV systolic function. 3. Medical therapy is advised due to acute [place]. Patient was loaded with 900 mg of Plavix in the [employer] Operator and planning Lovenox for the hospital duration. Observation for about 36 hours more. If he remains stable, he could be discharged then. If patient starts having severe or frequent angina, a transfemoral heart catheterization with IVUS examination of those areas in [place] may be contemplated, but at this time we don't feel it necessary. 4. A strong emphasis on smoking cessation risk factor control. Date of Exam: 11/30/17 COMPLETE ECHOCARDIOGRAM REPORT INDICATION Acute FL, non-STEMI. TECHNICAL QUALITY Technically good 2-D, M-mode, Doppler echocardiographic images were submitted for interpretation. FINDINGS 1. CARDIAC CHAMBERS. All cardiac chamber measurements are normal. Aortic root diameter is normal. RV appears to be normal in size with good contractility. 2. LEFT VENTRICLE. Analysis reveals concentric LVH of a mild degree is present. Nurse Rn Bsn measured 13.5 mm in the posterior wall, 13.9 mm in the septal wall. Wall motion analysis is normal. Systolic function is normal. EF is estimated at 65%. Diastolic function parameters are considered normal. 3. VALVES. Aortic valve exhibits normal structure and motion, normal valve excursion. Mitral valve exhibits annular calcification of a mild degree. Valve excursion is normal. Tricuspid valve exhibits mild annular calcification. Leaflet structure and motion appear normal. 4. DOPPLER. Analysis reveals trace regurgitation involving mitral and tricuspid valves, neither of hemodynamic significance. Normal flow velocity throughout were measured. 5. Normal systolic PA pressure estimated at 26 mmHg. IVC is not well seen. No evidence of pericardial effusion. IMPRESSION 1. Normal LV size and systolic function, EF of 60-65%, with preserved diastolic function parameters. 2. Mild LVH. 3. Mild sclerotic changes of the valves as above. - Laboratory Labs: Troponin trend 11/29/17 11/29/17 11/30/17 17:27 18:56 02:06 Troponin I < 0.012 0.040 D 0.405 H D 11/30/17 11/30/17 11/30/17 07:48 14:04 19:52 Troponin I 0.412 H 0.306 H 0.259 H Laboratory Tests 12/01/17 12/01/17 04:39 04:39 WBC 7.7 RBC 5.12 Hgb 14.8 Hct 46.3 MCV 90.4 MCH 28.9 MCHC 32.0 Plt Count 223 Sodium 143 Potassium 4.3 Chloride 104 Carbon Dioxide 29 Anion Gap 10 BUN 14.0 Creatinine 0.8 Glucose 126 H Calcium 9.1 Phosphorus 4.2 Magnesium 2.2 Total Bilirubin 0.60 Icterus Index < 2 AST 26 ALT 29 Alkaline Phosphatase 61 Total Protein 7.0 Albumin 3.8 Globulin 3.2 Lipids 11/30/17 14:04 Triglycerides 225 H Cholesterol 144 LDL Cholesterol, Calc 68.0 VLDL Cholesterol 45.0 H HDL Cholesterol 31 L Cholesterol/HDL Ratio 4.6 A1c 12/01/17 04:39 Hemoglobin A1c 6.2 H - Radiology Radiology: Date of Exam: 11/29/17 Indication: Pain PROCEDURE: XR chest 1V: FINDINGS: The lungs are clear. There is no abnormal airspace opacity, pleural effusion or pneumothorax identified. The heart size, pulmonary vasculature and mediastinum are within normal limits. No significant skeletal abnormality is seen. IMPRESSION: No acute cardiopulmonary abnormality. History of Present Illness HPI: Pt came in with stabbing cp that started while he was working on his car yesterday. EMS was called and nitro they gave helped somewhat but the fentanyl given took away the pain. Pt has not had cp since. Pt denies any n/v/d, f/c. Pt denies any previous such episodes. Pt denies any sx's or worsening of sx's previously to yesterday's episode. Pt is doing well currently. For complete H&P please see overnight note HPI from overnight: 57 yo M with PMH of morbid obesity and NIDDM presented to the ED with reports of severe stabbing substernal chest pain that started while he was kneeing down working on a car. He reports the pain radiated to his left arm and up his left jaw. He said it lasted for about 20 mins before EMS got there and he was given nitro and ASA and IV fentanyl at that time. His pain went from a 9 to a 1 before arrival to the ED. He denies SOA, diaphoresis, or N/V associated. He does have FH of [place] at age of 62 in his father. He did have a mild troponin elevation in the ED of 0.[address] Fenton recommended admission for monitoring and ECHO in the AM. Objective Vital signs: Temperature 97.1 F 12/01/17 03:26 Pulse Rate 72 12/01/17 08:00 Respiratory Rate 16 12/01/17 08:00 Blood Pressure 134/75 12/01/17 08:00 Pulse Oximetry 92 12/01/17 08:00 Height/Weight/BMI: Weight 186 kg - Constitutional Present: no acute distress, well nourished, well developed - Routine HEENT Exam Head: Present: normocephalic, atraumatic - Routine Respiratory Exam Present: CTA bilaterally. Absent: wheezes - Routine Cardiovascular Exam Present: RRR, no murmur - Routine Abdominal Exam Present: soft, non distended, non tender - Routine Extremities Exam Present: no edema, normal capillary refill - Routine Skin Exam Present: dry, warm - Routine Neurological Exam Present: alert, oriented X3 - Routine Lymphatic Exam Lymphatic: Absent: adenopathy - Routine Psychiatric Exam Present: normal affect, cooperative Hospital Course This is a general summary of the patient's hospital course. For more details refer to the complete medical record. Hospital course: 11/30/17 Pt currently does not have cp, pt has NSTEMI and has risk factors and will be getting heart cath today. 12/01/17 Patient had echo and heart cath by Dr. Fenton. Pt started on ASA, statin, metoprolol, Plavix, and will continue ADELA and metformin. He had loading dose of Plavix in technical laboratory asst and was on Lovenox during hospital stay. Per Dr. Fenton: Medical therapy is advised due to acute [place]. If patient starts having severe or frequent angina, a transfemoral heart catheterization with IVUS examination of those areas in [place] may be contemplated, but at this time we don't feel it necessary. Recommend smoking cessation. F-u with Dr. Fenton in 2 wks. F-u with Atif Cisneros APRN for DM, etc in 1-2 wks. Time spent with patient: discharge greater than 30 minutes Resuscitation Status: Full Code Discharge Plan - Discharge Disposition Discharge Date: 12/04/16 Disposition: Discharged Home, Self-Care *Condition: Stable Reason For Visit (Visit label in EMR): non-STEMI - Discharge Medications *Discharge Medications: New Aspirin Chewable [ASA] 162 mg PO DAILY tab.chew Atorvastatin [Lipitor] 40 mg PO HS #30 tab Clopidogrel [Plavix] 75 mg PO DAILY #30 tab Metoprolol Tartrate [Lopressor] 50 mg PO BIDWM #60 tab Nitroglycerin [Nitrostat] 0.4 mg SL Q5M PRN #25 tab PRN Reason: Angina Continue Lisinopril [Prinivil] 10 mg PO DAILY Metformin HCl [Glucophage] 500 mg PO BID Discontinued Naproxen [Aleve (Naproxen) 220 mg] 220 mg PO Q6H PRN PRN Reason: Pain Ibuprofen 400 mg PO O - Discharge Packet/Instructions *Diet: cardiac *Activity: do not raise more than 5 Lb. and for 2 week. no driving for 72 hrs *Pain Management/Treatment: Tylenol 650 mg every 6 hrs as needed *Wound Care: keep site dry ,clean and open to air Additional Instructions: Your new prescriptions were sent to the pharmacy. You will need to continue on all of your new medications. Refills on these medications will need to be done through Argenis Aldana's office or Dr Fenton. *Expected Signs/Symptoms: mild discomfort *Notify Physician if: discharge redness or severe pain at the site , severe numbness and tingling in the hand or fingers turning cold or pale . call 911 if severe or sudden swelling , brisk or pulsating bleed from heart cath entry site. severe numbness and tingling in the leg or toes . leg or foot turning cold or very pale. *During Business Hours Contact: *After Business Hours Contact: *Pending Lab/Results: No Pending Lab - Referrals/Follow Up *Referrals/Follow Up: Joe Fenton MD [Physician] - 2 Weeks Alessia Cisneros APRN [Primary Care Provider] - (1-2 wks) - Patient Handouts Patient Handouts: Myocardial Infarction (GEN) - Dismissal Complete Discharge Instructions are:: Complete Physician Narrative - Narrative Attestation Narrative: Date: 12/01/17 Time: 1601 Pt was admitted for NSTEMI and heart cath was done by cardiology without any intervention. Medical management was recommended per cards. Pt did well and was discharged the next day per recs of cardiology. Pt did well on day of discharge and denied any cp, sob, n/v/d. Pt was ambulating well. Heart sounds were RRR without murmurs and lung sounds were CTAB. Pt will follow up with cardiology as outpatient.
--- NOTE | 2017-12-01 11:58 | Cardiology Progress Note ---
Subjective Interval history: Ellis is doing quite well. Quite anxious about going home as he misses his CAT and certainly misses asleep in his own bed. He is determined to make the changes in lifestyle like smoking cessation weight loss and increase aerobic activity. He had no angina or dyspnea. Heart catheterization site in the right wrist is healing well without pain drainage or swelling. Telemetry normal sinus rhythm in the 80s labs reviewed. Including Lipid profile Exam Vital signs: Temperature 97.1 F 12/01/17 03:26 Pulse Rate 72 12/01/17 08:00 Respiratory Rate 16 12/01/17 08:00 Blood Pressure 134/75 12/01/17 08:00 Pulse Oximetry 92 12/01/17 08:00 Inpatient Medications: Generic Name Dose Route Start Last Admin Trade Name Freq PRN Reason Stop Dose Admin Acetaminophen 325 - 650 mg 11/30/17 13:35 Tylenol PO Q5H PRN Pain Hydrocodone Bitart/Acetaminophen 1 - 2 tab 11/30/17 13:35 [place] 5/325 PO Q5H PRN Pain Al Hydroxide/Mg Hydroxide 30 ml 11/30/17 13:35 Maalox Plus PO Q3H PRN Indigestion Aspirin 162 mg 12/01/17 09:00 12/01/17 09:05 Asa PO 162 mg DAILY TOMMY Administration Atorvastatin Calcium 40 mg 12/01/17 21:00 Lipitor PO HS TOMMY Atropine Sulfate 0.5 mg 11/30/17 13:35 Atropine IVP Q5M PRN Bradycardia Bisacodyl 10 mg 11/30/17 13:35 Dulcolax RECTALLY DAILY PRN Constipation Clopidogrel Bisulfate 75 mg 12/01/17 09:00 12/01/17 09:06 Plavix PO 75 mg DAILY TOMMY Administration Enoxaparin Sodium 190 mg 11/30/17 21:00 12/01/17 09:12 Lovenox 1 mg/kg (190 mg) 190 mg SQ Administration Q12H TOMMY Insulin Aspart 0 unit 11/29/17 22:21 Novolog SQ PRN PRN Blood sugars >150 Protocol Lisinopril 10 mg 11/30/17 09:00 12/01/17 09:06 Prinivil PO 10 mg DAILY TOMMY Administration Lorazepam 0.5 - 1 mg 11/30/17 13:35 Ativan PO Q4H PRN Anxiety Magnesium Hydroxide 30 ml 11/30/17 13:35 Mom PO DAILY PRN Constipation Metoprolol Tartrate 50 mg 12/01/17 17:30 Lopressor PO BIDWM TOMMY Morphine Sulfate 1 - 2 mg 11/29/17 20:10 Morphine Sulf 2 Mg Inj IVP Q2H PRN Pain Morphine Sulfate 2 - 4 mg 11/30/17 13:35 Morphine Sulfate Inj IVP 12/01/17 13:34 Q2H PRN Pain Morphine Sulfate 2 - 4 mg 11/30/17 13:35 Morphine Sulfate Inj IVP Q5M PRN Angina Nitroglycerin 0.4 mg 11/30/17 13:35 Nitrostat SL Q5M PRN Angina Ondansetron HCl 4 mg 11/30/17 13:35 Zofran IVP Q6H PRN Nausea &/or vomiting Sodium Chloride 10 - 80 ml 11/29/17 17:16 Iv Flush IVF PRN PRN Flushing Discontinued Medications Generic Name Dose Route Start Last Admin Trade Name Freq PRN Reason Stop Dose Admin Hydrocodone Bitart/Acetaminophen 1 tab 11/29/17 20:10 [place] 5/325 PO Q6H PRN Pain Atorvastatin Calcium 80 mg 11/30/17 21:00 11/30/17 20:55 Lipitor PO 80 mg HS TOMMY Administration Enoxaparin Sodium 40 mg 11/29/17 19:48 11/29/17 20:13 Lovenox SQ 11/29/17 19:49 40 mg O ONE Administration Enoxaparin Sodium 190 mg 11/30/17 04:00 11/30/17 04:32 Lovenox SQ 190 mg ONE TIME TOMMY Administration Sodium Chloride 1,000 mls @ 75 mls/hr 11/30/17 11:00 12/01/17 00:13 Normal Saline IV 75 mls/hr .[id number] TOMMY Administration Metoprolol Tartrate 25 mg 11/30/17 17:30 12/01/17 09:05 Lopressor PO 25 mg BIDWM TOMMY Administration Nicotine 21 mg 11/29/17 19:55 11/29/17 20:08 Nicoderm TD 11/29/17 19:56 21 mg O ONE Administration Nitroglycerin 0.4 mg 11/29/17 21:02 Nitrostat SL Q5MIN3 PRN Chest pain Ondansetron HCl 4 mg 11/29/17 20:10 Zofran IVP Q6H PRN Nausea &/or vomiting - Constitutional no acute distress - Routine HEENT Exam Head: Present: normocephalic, atraumatic Eye: Present: EOMI, PERRL ENT: Present: mucous membranes moist - Routine Neck Exam Present: normal carotid upstroke. Absent: JVD, carotid bruit, lymphadenopathy, thyromegaly - Routine Respiratory Exam Present: CTA bilaterally - Routine Cardiovascular Exam Present: RRR, no murmur, S4 - Routine Abdominal Exam Present: soft, normoactive bowel sounds, non distended, non tender. Absent: organomegaly, mass - Routine Extremities Exam Present: no edema, pulses intact (including 3+ right radial pulse), normal capillary refill. Absent: cyanosis, clubbing - Routine Skin Exam Present: intact, dry, wounds (heart catheter incision right wrist looks dry excellent without swelling bleeding or hematoma). Absent: cyanosis, erythema - Routine Neurological Exam Present: alert, oriented X3, CN II-XII intact, moving all extremities, vision grossly intact, hearing grossly intact, normal speech. Absent: motor deficit, facial asymmetry - Routine Psychiatric Exam Present: normal affect, normal thought process, cooperative, good insight, good judgment Results 12/01/17 04:39 12/01/17 04:39 Cardiac Enzymes 11/30/17 12/01/17 Range/Units 19:52 04:39 AST 26 (17-59) U/L Troponin I 0.259 H (0-0.12) ng/ml CBC 12/01/17 Range/Units 04:39 WBC 7.7 (4.5-11.0) T/MM3 RBC 5.12 (4.50-5.90) M/MM3 Hgb 14.8 (13.5-17.5) GM/DL Hct 46.3 (41-53) % Plt Count 223 (130-400) T/MM3 Neut # (Auto) 4.7 (1.8-7.7) T/MM3 Lymph # (Auto) 1.9 (1-4.8) T/MM3 [place] # (Auto) 0.6 (0-0.8) T/MM3 Eos # (Auto) 0.5 (0-0.5) T/MM3 Baso # (Auto) 0.0 (0-0.2) T/MM3 Comprehensive Metabolic Panel 12/01/17 Range/Units 04:39 Sodium 143 (134-144) MEQ/L Potassium 4.3 (3.6-5) MEQ/L Chloride 104 (98-107) MEQ/L Carbon Dioxide 29 (22-30) MEQ/L BUN 14.0 (9-20) MG/DL Creatinine 0.8 (0.8-1.5) mg/dL Glucose 126 H (75-110) MG/DL Calcium 9.1 (8.4-10.2) MG/DL AST 26 (17-59) U/L ALT 29 (1-50) U/L Alkaline Phosphatase 61 (38-126) U/L Total Protein 7.0 (6.3-8.2) g/dL Albumin 3.8 (3.5-5.0) g/dL Intake and Output 11/30/17 12/01/17 12/01/17 22:59 06:59 14:59 Intake Total 200 / 200 997.5 / 997.5 190 / 190 Balance 200 / 200 997.5 / 997.5 190 / 190 Intake: IV 997.5 / 997.5 Ns 1,000 ml @ 75 mls/hr IV . 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 Post heart catheter and post CA restrictions provided Return to clinic see me in 2 weeks Discussed with patient family Discussed with the primary service hospitalist Hospital Course Summary Disclaimer: The visit summary below is not to be considered part of the above Progress Note. Hospital Course: 11/30/17 Pt currently does not have cp, pt has NSTEMI and has risk factors and will be getting heart cath today.
[2017-12-01] MEDS ORDERED: ATORVASTATIN 40 MG TABLET PO SCH (21:00)
== END 2017-12-01 12:20 | disposition home or self-care (01) | DRG 281 ==
LOC: EDHOLD 17:09 → ED 17:09 → SRG 20:25 → EDHOLD 20:25
PROVIDERS: ADMIT Internal Medicine; ATTEND Internal Medicine